=== PATIENT | male | born 1960 | race Caucasian/White ===

== ENCOUNTER 2020-01-20 07:32 | Outpatient (REF) | payer BC, SELFPAY ==
[2020-01-20 11:09] LABS: MANUAL DIFF FLAG NO
[2020-01-20 11:16] LABS: Basophils Percent Auto 0.6 % (0-2); Eosinophils Absolute Auto 0.4 X10*3/uL (0.0-0.4); Eosinophils Percent Auto 6.2 % (0-4); Hematocrit 44.1 % (42-52); Hemoglobin 14.8 g/dl (14.0-18.0); Imm Gran Abs Auto 0.02 X10*3/uL (0.00-0.03); Imm Gran Pct Auto 0.3 % (0.0-0.4); Lymphocytes Absolute Auto 2.1 X10*3/uL (1.2-4.9); Lymphocytes Percent Auto 32.6 % (20-40); Mean Corpuscular HGB Conc 33.6 g/dl (31.0-36.0); Mean Corpuscular Hemoglobin 31.4 pg (27.0-33.0); Mean Corpuscular Volume 93.4 fL (80-98); Mean Platelet Volume 9.4 fL (9.4-12.4); Monocytes Absolute Auto 0.5 X10*3/uL (0.1-1.2); Monocytes Percent Auto 7.4 % (2-11); Neutrophils Absolute Auto 3.3 X10*3/uL (2.0-8.3); Neutrophils Percent Auto 52.9 % (45-73); Platelet Count 228 X10*3/uL (160-400); Red Blood Count 4.72 X10*6/uL (4.60-5.80); White Blood Count 6.3 X10*3/uL (4.8-10.8)
[2020-01-20 11:56] LABS: Alanine Aminotransferase 17 U/L (0-40); Albumin Level 4.4 g/dL (3.5-5.0); Alkaline Phosphatase 78 U/L (39-117); Anion Gap 14 (12-20); Aspartate Amino Transferase 22 U/L (5-37); Bilirubin Total 0.7 mg/dL (0.0-1.0); Blood Urea Nitrogen 17 mg/dL (9-16); Calcium 8.8 mg/dL (8.4-10.2); Carbon Dioxide 28 mmol/L (22-29); Chloride 103 mmol/L (96-108); Cholesterol 202 mg/dL; Estimated Glomerular Filt Rate > 60; Glucose Fasting 92 mg/dL (60-99); HDL Cholesterol 44 mg/dL; LDL Cholesterol Calculated 134 mg/dl; Potassium 4.6 mmol/l (3.3-5.1); Sodium 140 mmol/L (135-145); Total Protein 7.1 g/dL (6.5-8.0); Triglycerides 124 mg/dL
== END 2020-01-20 07:33 | disposition home or self-care (01) ==
LOC: HO.MANLDS 07:32
PROVIDERS: PCP Physician Assistant; Visit Provider Physician Assistant
DX: Z00.00 Encounter for general adult medical examination without abnormal findings (principal); Z13.6 Encounter for screening for cardiovascular disorders; Z13.220 Encounter for screening for lipoid disorders
CPT/HCPCS: 36415; 80053; 80061; 85025

== ENCOUNTER 2021-05-20 07:05 | Outpatient (REF) | payer BC, SELFPAY ==
[2021-05-20 11:16] LABS: MANUAL DIFF FLAG NO
[2021-05-20 11:41] LABS: Alanine Aminotransferase 28 U/L (0-40); Albumin Level 4.5 g/dL (3.5-5.0); Alkaline Phosphatase 92 U/L (39-117); Anion Gap 12 (12-20); Aspartate Amino Transferase 28 U/L (5-37); Bilirubin Total 0.8 mg/dL (0.0-1.0); Blood Urea Nitrogen 14 mg/dL (9-16); Calcium 9.5 mg/dL (8.4-10.2); Carbon Dioxide 30 mmol/L (22-29); Chloride 105 mmol/L (96-108); Cholesterol 185 mg/dL; Estimated Glomerular Filt Rate > 60; Glucose Fasting 103 mg/dL (60-99); HDL Cholesterol 47 mg/dL; LDL Cholesterol Calculated 118 mg/dl; Potassium 4.5 mmol/L (3.3-5.1); Sodium 142 mmol/L (135-145); Total Protein 7.3 g/dL (6.5-8.0); Triglycerides 102 mg/dL
[2021-05-20 11:55] LABS: Basophils Percent Auto 0.3 % (0-2); Eosinophils Absolute Auto 0.3 X10*3/uL (0.0-0.4); Hematocrit 45.4 % (42.0-52.0); Imm Gran Abs Auto 0.02 X10*3/uL (0.00-0.03); Imm Gran Pct Auto 0.3 % (0.0-0.4); Lymphocytes Absolute Auto 2.1 X10*3/uL (1.2-4.9); Lymphocytes Percent Auto 28.8 % (20-40); Mean Corpuscular Hemoglobin 30.4 pg (27.0-33.0); Mean Corpuscular Volume 92.1 fL (80.0-98.0); Mean Platelet Volume 9.1 fL (9.4-12.4); Monocytes Absolute Auto 0.5 X10*3/uL (0.1-1.2); Monocytes Percent Auto 7.3 % (2-11); Neutrophils Absolute Auto 4.4 x10*3/uL (2.0-8.3); Neutrophils Percent Auto 59.3 % (45-73); Platelet Count 246 X10*3/uL (160-400); Red Blood Count 4.93 X10*6/uL (4.60-5.80); Red Cell Distribution Width 12.4 % (11.0-16.0); White Blood Count 7.4 X10*3/uL (4.8-10.8)
[2021-05-20 12:34] LABS: Prostate Specific Antigen 0.78 ng/mL (<0.05-4.0)
== END 2021-05-20 07:06 | disposition home or self-care (01) ==
LOC: HO.WFDLDS 07:05
PROVIDERS: Visit Provider Internal Medicine
DX: Z00.00 Encounter for general adult medical examination without abnormal findings (principal); Z12.5 Encounter for screening for malignant neoplasm of prostate
CPT/HCPCS: 36415; 80053; 80061; 82306; 84153; 85025

== ENCOUNTER 2022-05-20 07:11 | Outpatient (REF) | payer BC, SELFPAY ==
[2022-05-20 11:47] LABS: MANUAL DIFF FLAG NO
[2022-05-20 11:53] LABS: Basophils Percent Auto 0.5 % (0-2); Eosinophils Absolute Auto 0.2 X10*3/uL (0.0-0.4); Eosinophils Percent Auto 4.3 % (0-4); Hemoglobin 14.5 g/dl (14.0-18.0); Imm Gran Abs Auto 0.01 X10*3/uL (0.00-0.03); Imm Gran Pct Auto 0.2 % (0.0-0.4); Lymphocytes Percent Auto 35.5 % (20-40); Mean Corpuscular HGB Conc 33.7 g/dl (31.0-36.0); Mean Corpuscular Hemoglobin 30.6 pg (27.0-33.0); Mean Corpuscular Volume 90.7 fL (80.0-98.0); Mean Platelet Volume 9.1 fL (9.4-12.4); Monocytes Absolute Auto 0.4 X10*3/uL (0.1-1.2); Monocytes Percent Auto 6.7 % (2-11); Neutrophils Percent Auto 52.8 % (45-73); Platelet Count 244 X10*3/uL (160-400); Red Blood Count 4.74 X10*6/uL (4.60-5.80); Red Cell Distribution Width 12.4 % (11.0-16.0); White Blood Count 5.6 X10*3/uL (4.8-10.8)
[2022-05-20 12:08] LABS: Estimated Average Glucose 114 mg/dL; Hemoglobin A1c % 5.6 %
[2022-05-20 12:32] LABS: Alanine Aminotransferase 17 U/L (0-40); Albumin Level 4.2 g/dL (3.5-5.0); Alkaline Phosphatase 85 U/L (39-117); Anion Gap 13 (12-20); Aspartate Amino Transferase 22 U/L (5-37); Bilirubin Total 0.8 mg/dL (0.0-1.0); Blood Urea Nitrogen 16 mg/dL (9-16); Calcium 8.9 mg/dL (8.4-10.2); Carbon Dioxide 25 mmol/L (22-29); Chloride 107 mmol/L (96-108); Cholesterol 202 mg/dL; Estimated Glomerular Filt Rate > 60; Glucose Random 97 mg/dL (60-115); HDL Cholesterol 42 mg/dL; LDL Cholesterol Calculated 142 mg/dl; Potassium 4.2 mmol/L (3.3-5.1); Sodium 141 mmol/L (135-145); Total Protein 6.6 g/dL (6.5-8.0); Triglycerides 91 mg/dL
[2022-05-20 12:41] LABS: Prostate Specific Antigen 0.73 ng/mL (<0.05-4.0); Vitamin D 25-OH Total 30.8 ng/mL (>30)
== END 2022-05-20 07:12 | disposition home or self-care (01) ==
LOC: HO.WFDLDS 07:11
PROVIDERS: Visit Provider Internal Medicine
DX: Z00.00 Encounter for general adult medical examination without abnormal findings (principal); E78.00 Pure hypercholesterolemia, unspecified; E55.9 Vitamin D deficiency, unspecified; R73.01 Impaired fasting glucose; Z20.2 Contact with and (suspected) exposure to infections with a predominantly sexual mode of transmission; Z12.5 Encounter for screening for malignant neoplasm of prostate
CPT/HCPCS: 36415; 80053; 80061; 82306; 83036; 84153; 85025

== ENCOUNTER 2022-08-22 15:46 | Outpatient (REF) | payer BC, SELFPAY ==
[2022-08-30 07:28] LABS: Testosterone, Free 57.5 pg/mL (35.0-155.0); Testosterone, Total 500 ng/dL (250-1100)
== END 2022-08-22 15:47 | disposition home or self-care (01) ==
LOC: HO.MANLDS 15:46
PROVIDERS: Visit Provider Internal Medicine
DX: F52.21 Male erectile disorder (principal)
CPT/HCPCS: 36415; 84402; 84403

== ENCOUNTER 2023-05-23 15:54 | Outpatient (REF) | payer BC, SELFPAY ==
[2023-05-23 17:59] LABS: MANUAL DIFF FLAG NO
[2023-05-23 18:20] LABS: Basophils Percent Auto 0.7 % (0-2); Eosinophils Absolute Auto 0.2 X10*3/uL (0.0-0.4); Hematocrit 42.6 % (42.0-52.0); Hemoglobin 15.1 g/dl (14.0-18.0); Imm Gran Abs Auto 0.01 X10*3/uL (0.00-0.03); Imm Gran Pct Auto 0.2 % (0.0-0.4); Lymphocytes Absolute Auto 2.2 X10*3/uL (1.2-4.9); Lymphocytes Percent Auto 38.3 % (20-40); Mean Corpuscular HGB Conc 35.4 g/dl (31.0-36.0); Mean Corpuscular Hemoglobin 31.9 pg (27.0-33.0); Mean Corpuscular Volume 89.9 fL (80.0-98.0); Mean Platelet Volume 9.3 fL (9.4-12.4); Monocytes Absolute Auto 0.4 X10*3/uL (0.1-1.2); Monocytes Percent Auto 7.6 % (2-11); Neutrophils Absolute Auto 2.9 x10*3/uL (2.0-8.3); Neutrophils Percent Auto 49.2 % (45-73); Platelet Count 247 X10*3/uL (160-400); Red Blood Count 4.74 X10*6/uL (4.60-5.80); Red Cell Distribution Width 12.1 % (11.0-16.0); White Blood Count 5.8 X10*3/uL (4.8-10.8)
[2023-05-23 18:56] LABS: Alanine Aminotransferase 18 U/L (0-40); Albumin Level 4.6 g/dL (3.5-5.0); Alkaline Phosphatase 86 U/L (39-117); Anion Gap 14 (12-20); Aspartate Amino Transferase 25 U/L (5-37); Bilirubin Total 0.7 mg/dL (0.0-1.0); Blood Urea Nitrogen 16 mg/dL (9-16); Calcium 9.8 mg/dL (8.4-10.2); Carbon Dioxide 26 mmol/L (22-29); Chloride 106 mmol/L (96-108); Cholesterol 197 mg/dL (<200); Estimated Glomerular Filt Rate > 60; Glucose Random 87 mg/dL (60-115); HDL Cholesterol 50 mg/dL (>40); LDL Cholesterol Calculated 138 mg/dL (<100); Potassium 4.1 mmol/L (3.3-5.1); Sodium 142 mmol/L (135-145); Total Protein 7.9 g/dL (6.5-8.0); Triglycerides 45 mg/dL (<150)
[2023-05-23 19:16] LABS: Prostate Specific Antigen 0.76 ng/mL (<0.05-4.0)
[2023-05-28 16:18] LABS: Testosterone, Free 33.5 pg/mL (35.0-155.0); Testosterone, Total 389 ng/dL (250-1100)
== END 2023-05-23 15:55 | disposition home or self-care (01) ==
LOC: HO.MANLDS 15:54
PROVIDERS: Visit Provider Internal Medicine
DX: F52.21 Male erectile disorder (principal); Z12.5 Encounter for screening for malignant neoplasm of prostate; E78.5 Hyperlipidemia, unspecified
CPT/HCPCS: 36415; 80053; 80061; 84153; 84402; 84403; 85025

== ENCOUNTER 2024-08-06 15:07 | Outpatient (REF) | payer BC, SELFPAY ==
--- OUTSIDE RECORDS SUMMARY | 2024-08-06 18:20 | XMS_ITS | Data Portability ---
Author Organization [facility], Telehealth Patient Home Address [address] [place] [address] Assessment No assessment recorded. Plan of Treatment Reminders Order Date Submit Date Provider Last Modified By Organization Details Last Modified Time Details Appointments None recorded. Lab lipid panel, blood 2024 025 [facility], [address] [place] [address], [address], 5 09:22:21 CMP, serum or plasma 2024 025 [facility], [address] [place] [address], [address], 5 09:22:21 CBC w/ auto diff 2024 025 [facility], [address] [place] [address], [address], 5 09:22:21 PSA, serum or plasma 2024 025 [facility], [address] [place] [address], [address], 5 09:22:20 testostero ne, total, serum 2024 025 [facility], [address] [place] [address], [address], 5 09:22:20 vitamin B12 + folate, serum or blood 2024 025 [facility], [address] [place] [address], [address], 5 09:22:20 vitamin D, 25-hydroxy , total, serum 2024 025 [facility], [address] [place] [address], [address], 5 09:22:21 lipid panel, blood [address] [facility], [address] [place] [address], [address], 3 11:14:44 CMP, serum or plasma [address] [facility], [address] [place] [address], [address], 3 11:14:44 PSA, serum or plasma 2022 023 [facility], [address] [place] [address], [address], 3 11:00:42 CBC w/ auto diff 2022 023 [facility], [address] [place] [address], [address], 3 11:00:42 vitamin D, 25-hydroxy , total, serum 2022 023 [facility], [address] [place] [address], [address], 3 11:00:43 HbA1c (hemoglobi n A1c), blood 2022 023 [facility], [address] [place] [address], [address], 3 11:00:42 CMP, serum or plasma [address] [facility], [address] [place] [address], [address], 2 12:04:48 CBC w/ auto diff [address] [facility], [address] [place] [address], [address], 12:04:49 lipid panel, blood [address] [facility], [address] [place] [address], [address], 12:04:48 PSA, serum or plasma 2021 [facility], [address] [place] [address], [address], 09:55:06 vitamin D, 25-hydroxy , total, serum [address] [facility], [address] [place] [address], [address], 12:04:49 lipid panel, blood 2019 [facility], [address] [place] [address], [place], [address], 0 11:40:17 CBC w/ auto diff 2019 020 [facility], [address] [place] [address], [address], [place], [address], 0 11:40:17 CMP, serum or plasma 2019 020 [facility], [address] [place] [address], [address], [place], [address], 0 11:40:17 Referral None recorded. Procedures None recorded. Surgeries None recorded. Imaging MRI, brain, w/o contrast 2022 023 [email or web address] 10 [facility], [address] [facility], [facility] [address], [place], [address], 3 12:00:38 XR, chest, 2 view 2021 022 [email or web address] Not available 2 08:35:25 CT, heart, w/o contrast, w/ coronary calcium score 2021 022 [facility], [address] [place], [address], 2 15:55:09 Medication Orders terbinafin e HCl 250 mg tablet 2024 025 [id number], [address] [place], [address], 5 09:16:08 Patient TargetsNo targets recorded. Patient Instructions Encounter Date Encounter Id Patient Instructions Last Modified By Organization Details Last Modified Time 05/07/2021 [id number] cough: care instructions Not available 05/07/2021 09:58:11 Reason for Referral None Reported. Results Created Date Observation Date Name Description Value Unit Range Abnormal Flag Note LastModifiedBy Organization Detail LastModifiedTime 05/12/19 22 05/11/2021 CT, heart , w/o contr ast, w/ coron carmina calci um score No observ ation record ed. [facility] [address] [place], [address], 05/12/2021 09:19:54 05/25/19 22 05/24/2021 XR, chest , 2 view No observ ation record ed. [facility] [address] [facility] [address], [place], [address], 05/25/2021 08:31:26 10/27/19 24 10/25/2023 MR, angio gram, brain , w/o contr ast No observ ation record ed. [email or web address] [facility] [address] [facility], [place], [address], 10/30/2023 11:51:35 Result Notes None recorded. Problems Name Problem SNOMED Code Status Onset Date Resolution Date Notes Provider Name and Address Organization Details Recorded Time Erectile dysfuncti on 410464374 Active 2022 Gonsalo Alvarez DO [address] [place] [address], [address], [facility] 3 10:12:51 Hyperlipi demia 58970003 Active 2022 TADEO CAMPOS [address] [place] [address], [address], [facility] 3 08:30:40 Family history of stroke due to aneurysm 970849045462 64083 Active 2023 Gonsalo Alvarez DO [address] [place] [address], [address], [facility] 4 09:02:44 Onychomyc osis of toenails 256585712 Active 2024 Gonsalo Alvarez DO [address] [place] [address], [address], [facility] 5 09:08:01 Fatigue 02197326 Active 2024 Gonsalo Alvarez DO [address] [place] [address], [address], [facility] 5 09:15:20 Diverticu litis 776395902 Active 2017 [facility] 8 08:37:23 Problem Notes None recorded. Procedures Surgical History Date Name Laterality Status Provider Name and Address Organization Details Recorded Time 7 Colonoscopy completed Rosa Smalls [facility] 12/19/2018 15:01:13 Imaging Results None recorded. Procedure Notes None recorded. Medical Equipment None Reported. Allergies Allergen ID Allergen Name Allergen Category Reaction Reaction Severity Criticality Documentation Date Start Date Code Code System Note Provider Name and Address Organization Details Recorded Time 1437 Product containin g penicilli n (product) medicatio n Not available Not available Not available 07/05/2017 15896 [id number] IMER Rachelmery scanlon [facility] 8 08:36:47 Medications Name Sig Start Date Stop Date Status Note LastModified by Organization Details LastModified Time atorvastatin 10 mg tablet TAKE 1 TABLET BY MOUTH EVERY DAY 08/17 completed Not Available Not Available Not Available terbinafine HCl 250 mg tablet TAKE 1 TABLET BY MOUTH EVERY DAY FOR 30 DAYS active Not Available Not Available No t Available gemfibrozil 600 mg tablet TAKE 1 TABLET TWICE A DAY BY ORAL ROUTE FOR 90 DAYS. active Not Available Not Available No t Available Vitals Date Recorded Body height Body mass index (BMI) Body weight Heart rate Oxygen saturation Oxygen saturation in Arterial blood by Pulse oximetry Systolic blood pressure Diastolic blood pressure Provider Name and Address Organization Details Last Updated DateTime 2 163.83 cm 32.4 kg/m2 20794.3 g 62 /min 92 % 92 % 158 mm[Hg] 80 mm[Hg] Gonsalo Alvarez, DO [address] [place], [address] 2 09:24:22 Date Recorded Body height Body mass index (BMI) Body weight Heart rate Oxygen saturation Oxygen saturation in Arterial blood by Pulse oximetry Systolic blood pressure Diastolic blood pressure Provider Name and Address Organization Details Last Updated DateTime 3 162.56 cm 31.4 kg/m2 67249.1 2 g 71 /min 95 % 95 % 130 mm[Hg] 70 mm[Hg] Gonsalo Alvarez, [address] [place], [address], [facility] 3 10:30:53 Date Recorded Body height Body mass index (BMI) Body weight Heart rate Respiratory rate Systolic blood pressure Diastolic blood pressure Provider Name and Address Organization Details Last Updated DateTime 4 165.1 cm 30.5 kg/m2 87567.4 g 68 /min 18 /min 148 mm[Hg] 86 mm[Hg] Jose Triana [facility] 4 11:00:01 Date Recorded Body weight Body mass index (BMI) Body height Heart rate Oxygen saturation Oxygen saturation in Arterial blood by Pulse oximetry Systolic blood pressure Diastolic blood pressure Provider Name and Address Organization Details Last Updated DateTime 5 29275.4 g 29.5 kg/m2 167.64 cm 66 /min 98 % 98 % 130 mm[Hg] 78 mm[Hg] Flora Aguilar [facility] 5 08:59:50 Date Recorded Body height Body mass index (BMI) Body weight Heart rate Oxygen saturation Oxygen saturation in Arterial blood by Pulse oximetry Systolic blood pressure Diastolic blood pressure Provider Name and Address Organization Details Last Updated DateTime 0 163.83 cm 32.5 kg/m2 64563.4 5 g 70 /min 97 % 97 % 140 mm[Hg] 80 mm[Hg] Rosa Smalls [facility] 0 10:30:43 Social History Question Answer Notes LastModified by 2Duche ion Details LastModified Time Tobacco Smoking Status Never Smoker Not Available [facility]17/2019 03:36:24 What Was The Date Of Your Most Recent Tobacco Screening? 07/23/2024 [email or web address] Information not available 07/23/2024 Sex: Unknown Functional Status Question Answer Note LastModified by Organization D etails LastModified Time Do you or have you ever used any other forms of tobacco or nicotine? No Information not available 05/17/2022 Mental Status None recorded. Family History Relationship Description Onset Age of this Age Resolved Age Notes LastModified by Organization Details LastModified Time Father Type 2 diabetes mellitus [email or web address] Not available 11/2024 08:53:12 Mother Hypertensive disorder [email or web address] Not available 2017 16:39:00 Sister Anxiety [email or web address] Not availa ble 07/23/2024 08:53:12 Medical History No medical history recorded. Past Encounters Encounter ID Performer Location Encounter Start Date Encounter Closed Date Diagnosis/Indication Diagnosis SNOMED-CT Code Diagnosis ICD10 Code Diagnosis Note [id number] Gonsalo Alvarez [facility] [address] [facility],[place] [address] 07/05/2017 16:00:03 07/07/2017 09:32:00 Atypical chest pain 846892117 R07.89 call if recurs Hypercholesterolemia 136 21439 E78.00 congrats on new exercise regimem, keep up good work [id number] Gonsalo Alvarez [facility] [address] [facility] [address] [address] 12/20/2017 14:47:38 12/20/2017 16:14:25 Adult health examination 392162436 Z00.00 Active or passive immunization 612091836 Z23 Screening procedure 2012 5006 Z13.9 Hypercholesterolemia 136 60417 E78.00 [id number] Gonsalo Alvarez [facility] [address] [facility] [address] [address] 12/21/2018 15:13:33 12/21/2018 16:37:27 Adult health examination 962854273 Z00.00 Active or passive immunization 571704149 Z23 Screening procedure 2012 5006 Z13.9 Hypercholesterolemia 136 21169 E78.00 Body mass index 25-29 - overweight 458751437 Z68.29 has lost 25 lbs on WW! [id number] Gonsalo Alvarez [facility] [address] [facility] [address] [place] [address] 12/23/2019 10:26:54 12/23/2019 11:16:23 Adult health examination 617969558 Z00.00 BP elevated though pt just came from work so states he is stressed will monitor at next appt Active or passive immunization 212953638 Z23 due for, will send in order Screening for cardiovascular system disease 318596077 Z13.6 needs [id number] Gonsalo Alvarez [facility] [address] [facility] [address] [address] 05/07/2021 09:18:39 05/07/2021 15:02:03 Active or passive immunization 701702030 Z23 utd Adult heal th examination 981754698 Z00.00 Cough 29314287 R05.2 [id number] Gonsalo Alvarez [facility] [address] [facility] [address],[place] [address] 05/17/2022 10:21:57 05/17/2022 11:35:16 Active or passive immunization 913846065 Z23 utd Adult heal th examination 028505560 Z00.00 Hypercholesterolemia 136 64025 E78.00 Family his tory of aneurysm of blood vessel of brain 7884882928 0753584 Z82.49 given an immediate family member with this dx and succumbed to will order [id number] Gonsalo Alvarez [facility] [address] [facility] [address] 07/14/2023 10:31:03 07/14/2023 11:41:41 Active or passive immunization 697214125 Z23 utd Adult heal th examination 510984739 Z00.01 will have him call me 2 weeks portal re his throat and voice after trial of zyrtec and flonase ct heart next april Depression screening 171 777854 Z13.31 neg [id number] Gonsalo Alvarez [facility] [address] [facility],[address] [facility] [place] [address] 07/23/2024 08:53:06 07/23/2024 09:44:48 Active or passive immunization 158268152 Z23 utd Hyperlipidemia 41427568 E78.5 Onychomyco sis of toenails 031033673 B35.1 Well adult 832649819 Z00 .00 will have him call me 2 weeks portal re his throat and voice after trial of zyrtec and flonase ct heart next april Fatigue 62996671 R53.82 Health Concerns Section Related Observation LastModified by Organization Detai ls LastModified Time None Recorded Concern Status LastModified by Organization Details LastModified Time None Recorded Advance Directives Directive None Recorded Payers Insurance Date Sequence Insurance Name Policy Number Policy [place] Covered Member ID [place] Member ID Guarantor Name 07/17/2024 1 CRISTIAN (PPO) [id number] Juan Francisco Contreras [id number] Juan Francisco Contreras 07/20/2024 1 CRISTIAN (PPO) [id number] Juan Francisco Contreras [id number] Juan Francisco Contreras Notes Date Note Type Note Provider Name and Address Organization Details Recorded Time 12/23/19 text/htm l Annual WellnessReported bypatient.Diet and Nutrition:discussed vitamin and supplement use; discussed portion control; discussed maintaining calcium balance; discussed diet improvement; the patient states his diet is good but he knows he may eat too much bread Fracture Risk:no history of fractures; no recent explained fracture; no sudden unexplained fractures; no previous musculoskeletal injuries Physical Activity:exercises on a regular basis; discussed weightbearing activities; discussed exercise habits; walking 6 miles today Additional Lifestyle Factors:no tobacco use; no alcohol intake Depression Risk:never feels sad, empty, or tearful; no loss of interest in activities; no significant changes in weight; no sleep disturbances or insomnia; no agitation; no loss of energy; no feelings of worthlessness or guilt; no thoughts of suicide; no history of depression; no history of mood disorders Hearing:loss of hearing in one ear only(right) Vision:no vision problems TADEO CAMPOS [address] [place] [address], [address], [facility] 12/23/2019 10:47:18 05/08/19 text/htm l Annual WellnessReported bypatient.Diet and Nutrition:healthy diet Fracture Risk:no history of fractures; no recent explained fracture; no sudden unexplained fractures; no previous musculoskeletal injuries Physical Activity:exercises on a regular basis; recent increase in physical activity; good physical condition Additional Lifestyle Factors:no tobacco use; no alcohol intake; stopped drinking alcohol Depression Risk:never feels sad, empty, or tearful; no loss of interest in activities; no significant changes in weight; no sleep disturbances or insomnia; no agitation; no loss of energy; no feelings of worthlessness or guilt; no thoughts of suicide; no history of depression; no history of mood disorders Hearing:no loss of hearing Vision:no vision problems Gonsalo Alvarez DO [address] [place], [address], [facility] 05/07/2021 09:59:23 05/18/19 text/htm l Annual WellnessReported bypatient.Diet and Nutrition:healthy diet Fracture Risk:no history of fractures; no recent explained fracture; no sudden unexplained fractures; no previous musculoskeletal injuries Physical Activity:exercises on a regular basis; recent increase in physical activity; good physical condition Additional Lifestyle Factors:no tobacco use; no alcohol intake; stopped drinking alcohol Depression Risk:never feels sad, empty, or tearful; no loss of interest in activities; no significant changes in weight; no sleep disturbances or insomnia; no agitation; no loss of energy; no feelings of worthlessness or guilt; no thoughts of suicide; no history of depression; no history of mood disorders Hearing:no loss of hearing Vision:no vision problems here for cpe has been under a lot of stress lately not sleeping wellhis mom has endstage Lewy body dementia Gonsalo Alvarez, DO [address] [place] [address], [address], [facility] 05/17/2022 11:01:30 07/14/19 24 text/htm l Annual WellnessReported bypatient.Diet and Nutrition:healthy diet Fracture Risk:no history of fractures; no recent explained fracture; no sudden unexplained fractures; no previous musculoskeletal injuries Physical Activity:exercises on a regular basis; recent increase in physical activity; good physical condition Additional Lifestyle Factors:no tobacco use; no alcohol intake; stopped drinking alcohol Depression Risk:never feels sad, empty, or tearful; no loss of interest in activities; no significant changes in weight; no sleep disturbances or insomnia; no agitation; no loss of energy; no feelings of worthlessness or guilt; no thoughts of suicide; no history of depression; no history of mood disorders Hearing:no loss of hearing Vision:no vision problems Gonsalo Alvarez DO [address] [place] [address], [address], [facility] 07/14/2023 11:40:01 07/24/19 25 text/htm l Annual WellnessReported bypatient.Diet and Nutrition:healthy diet Fracture Risk:no history of fractures; no recent explained fracture; no sudden unexplained fractures; no previous musculoskeletal injuries Physical Activity:exercises on a regular basis; recent increase in physical activity; good physical condition Additional Lifestyle Factors:no tobacco use; no alcohol intake; stopped drinking alcohol Depression Risk:never feels sad, empty, or tearful; no loss of interest in activities; no significant changes in weight; no sleep disturbances or insomnia; no agitation; no loss of energy; no feelings of worthlessness or guilt; no thoughts of suicide; no history of depression; no history of mood disorders Hearing:no loss of hearing Vision:no vision problemsCare Management - HyperlipidemiaReported bypatient.Control:usually well controlled; improving; at goal Complications:no coronary artery disease; no heart attack; no cardiovascular disease; no pancreatitis; no stroke here for cpehas been under some stress at work Gonsalo Alvarez, DO [address] [place] [address], [address], [facility] 07/23/2024 09:20:38
[2024-08-06 18:36] LABS: MANUAL DIFF FLAG NO
[2024-08-06 18:59] LABS: Alanine Aminotransferase 23 U/L (0-40); Albumin Level 5.1 g/dL (3.5-5.0); Alkaline Phosphatase 91 U/L (39-117); Anion Gap 15 (12-20); Aspartate Amino Transferase 36 U/L (5-37); Bilirubin Total 0.7 mg/dL (0.0-1.0); Blood Urea Nitrogen 17 mg/dL (9-16); Calcium 9.7 mg/dL (8.4-10.2); Carbon Dioxide 26 mmol/L (22-29); Chloride 105 mmol/L (96-108); Cholesterol 194 mg/dL (<200); Estimated Glomerular Filt Rate > 60; Glucose Random 94 mg/dL (60-115); HDL Cholesterol 47 mg/dL (>40); LDL Cholesterol Calculated 137 mg/dL (<100); Potassium 4.3 mmol/L (3.3-5.1); Sodium 142 mmol/L (135-145); Total Protein 7.8 g/dL (6.5-8.0); Triglycerides 52 mg/dL (<150)
[2024-08-06 19:03] LABS: Basophils Percent Auto 0.6 % (0-2); Eosinophils Absolute Auto 0.4 X10*3/uL (0.0-0.4); Eosinophils Percent Auto 5.4 % (0-4); Hemoglobin 14.5 g/dl (14.0-18.0); Imm Gran Abs Auto 0.01 X10*3/uL (0.00-0.03); Imm Gran Pct Auto 0.1 % (0.0-0.4); Lymphocytes Absolute Auto 2.3 X10*3/uL (1.2-4.9); Lymphocytes Percent Auto 33.6 % (20-40); Mean Corpuscular HGB Conc 35.4 g/dl (31.0-36.0); Mean Corpuscular Hemoglobin 31.7 pg (27.0-33.0); Mean Corpuscular Volume 89.5 fL (80.0-98.0); Mean Platelet Volume 9.1 fL (9.4-12.4); Monocytes Absolute Auto 0.5 X10*3/uL (0.1-1.2); Neutrophils Absolute Auto 3.6 x10*3/uL (2.0-8.3); Neutrophils Percent Auto 53.3 % (45-73); Platelet Count 279 X10*3/uL (160-400); Red Blood Count 4.58 X10*6/uL (4.60-5.80); Red Cell Distribution Width 12.4 % (11.0-16.0); White Blood Count 6.7 X10*3/uL (4.8-10.8)
[2024-08-06 19:19] LABS: Vitamin D 25-OH Total 50.6 ng/mL (>30)
[2024-08-06 19:25] LABS: Folate 14.3 ng/mL (> or = 4.0); Prostate Specific Antigen 0.85 ng/mL (<0.05-4.0); Vitamin B12 274 pg/mL (200-900)
[2024-08-11 16:38] LABS: Testosterone, Total 388 ng/dL (250-1100)
== END 2024-08-06 15:08 | disposition home or self-care (01) ==
LOC: HO.MANLDS 15:07
PROVIDERS: Visit Provider Internal Medicine
DX: E78.5 Hyperlipidemia, unspecified (principal); R53.82 Chronic fatigue, unspecified; Z12.5 Encounter for screening for malignant neoplasm of prostate
CPT/HCPCS: 36415; 80053; 80061; 82306; 82607; 82746; 84153; 84403; 85025